=== PATIENT | male | born 1960 | race Hispanic/Latino ===

== ENCOUNTER 2017-07-08 12:09 | Outpatient (CLI) | payer OTHER ==
--- NOTE | 2017-07-08 14:09 | ULT ---
BILATERAL LOWER EXTREMITY VENOUS ULTRASOUND: HISTORY: Bilateral lower extremity edema. COMPARISON: None. TECHNIQUE: Multiplanar nguyen-scale and color Doppler images were obtained in a bilateral lower extremity venous u ltrasound. Spectral analysis of the Doppler waveforms was performed. FINDINGS: The bilateral common femoral veins, profunda femoral veins, superficial femoral veins, and popliteal veins are normal in appearance without visible thrombus. These vessels demonstrate normal compressio n, flow, and augmentation. The posterior tibial veins and greater saphenous veins are also patent. Posterior to the right knee there is a Rojo's cyst, measuring 3.9 cm in greatest dimension. IMPRESSION: 1. No evidence of deep venous thrombosis. 2. Right Rojo's cyst. POS: [facility]
--- NOTE | 2017-07-08 15:36 | ULT ---
BILATERAL LOWER EXTREMITY ARTERIAL DOPPLER ULTRASOUND: Date: 07/08/17 COMPARISON: None. HISTORY: Nonhealing wound on right ankle. TECHNIQUE: Multiplanar Broussard scale sonographic imaging of the arterial structures of bilateral lower extremities obtained with color flow and spectral analysis. FINDINGS: The left common femoral artery is patent and demonstrates a triphasic waveform, as does the left prof unda femoral artery proximally. The proximal left superficial femoral artery is patent and demonstrat es a biphasic waveform. Left popliteal artery, anterior tibial artery, posterior tibial artery, and dorsalis pedis artery are patent on the left with biphasic waveforms noted. The right common femoral artery is patent and demonstrates a biphasic waveform. Right profunda femora l artery is patent with a triphasic waveform. The right SFA proximally is patent with a biphasic wave form. The mid and distal right SFA demonstrate a monophasic waveform on the right and the popliteal artery, as well as the NOLVIA, CHAIN MORTISER OPERATOR, and DPA on the right are monophasic. This suggests an area of hemody namically significant stenosis in the region of the proximal/mid right superficial femoral artery. VESSEL PEAK SYSTOLIC VELOCITY (cm/sec) RIGHT LOWER EXTREMITY: SERVER SYSTEMS ADMINISTRATOR 119 Profunda Femoral Artery 95 SFA Proximal 123 SFA Mid 155 SFA Distal 134 Popliteal Artery 140 NOLVIA 113 CHAIN MORTISER OPERATOR 113 DPA 20 LEFT LOWER EXTREMITY: SERVER SYSTEMS ADMINISTRATOR 141 Profunda Femoral Artery 107 SFA Proximal 112 SFA Mid 127 SFA Distal 104 Popliteal Artery 68 NOLVIA 112 CHAIN MORTISER OPERATOR 70 DPA 49 IMPRESSION: Bilateral lower extremity arterial structures are patent. There is concern for hemodynamically signif icant stenosis in the proximal/mid right SFA as described above. Recommend CT angiogram of the abdome n, pelvis, and bilateral lower extremities using a runoff protocol. POS: [facility]
== END 2017-07-08 12:10 | disposition home or self-care (01) ==
LOC: ULT 12:09
PROVIDERS: ATTEND Nurse Practitioner Family
DX: S81.801S Unspecified open wound, right lower leg, sequela (principal); I87.2 Venous insufficiency (chronic) (peripheral); R60.0 Localized edema; E66.9 Obesity, unspecified; I70.292 Other atherosclerosis of native arteries of extremities, left leg; M71.21 Synovial cyst of popliteal space [Baker], right knee
CPT/HCPCS: 93923; 93970

== ENCOUNTER 2020-03-14 10:29 | Outpatient (CLI) | payer OTHER ==
--- NOTE | 2020-03-14 10:41 | ULT ---
GALLBLADDER ULTRASOUND: HISTORY: Right upper quadrant abdominal pain FINDINGS: The liver demonstrates increased echogenicity without focal mass or intrahepatic biliary ductal dilat ation. No gallstones, gallbladder wall thickening or pericholecystic fluid are seen. The right kidney and visualized portions of the pancreas are normal. The common duct [id number] in diameter. No free fluid is seen in the Day's pouch. IMPRESSION: 1. Fatty liver 2. No evidence of cholelithiasis
== END 2020-03-14 10:30 | disposition home or self-care (01) ==
LOC: BICULT 10:29
PROVIDERS: ATTEND Nurse Practitioner Family
DX: R74.8 Abnormal levels of other serum enzymes (principal); K76.0 Fatty (change of) liver, not elsewhere classified
CPT/HCPCS: 76705

== ENCOUNTER 2023-01-08 07:46 | Outpatient (CLI) | payer BC ==
[2023-01-08] MEDS ORDERED: Iopamidol 370 76% 100 ML VIAL ONE (10:28)
== END 2023-01-08 07:47 | disposition home or self-care (01) ==
LOC: CT 07:46
PROVIDERS: ATTEND Internal Medicine Gastroenterology
DX: C18.9 Malignant neoplasm of colon, unspecified (principal); R91.8 Other nonspecific abnormal finding of lung field; R59.0 Localized enlarged lymph nodes; K63.89 Other specified diseases of intestine
CPT/HCPCS: 71260; 74177; 82565; Q9967

== ENCOUNTER 2023-01-31 09:05 | Outpatient (CLI) | payer BC ==
[2023-01-31 10:29] LABS: #Eosinphils 0.3 10x3/uL (0.0-0.5); #Monocytes 0.4 10x3/uL (0.0-1.1); #Neutrophils 2.9 10x3/uL (1.5-8.4); %Basophils 0.7 % (0.0-2.0); %Eosinophils 4.5 % (0.0-6.0); %Lymphocytes 37.5 % (18.0-47.0); %Monocytes 7.4 % (0.0-10.0); %Neutrophils 49.7 % (40.0-75.0); Hematocrit 40.7 % (38.8-50.0); Hemoglobin 13.3 g/dL (13.5-17.5); Mean Corpuscular HGB CONC 32.7 g/dL (32.0-36.0); Mean Corpuscular Volume 91.9 fl (81.2-95.1); Mean Platelet Volume 10.7 fl (7.4-10.4); Platelet Count 204 10x3/uL (150-450); RBC Distribution Width 15.7 % (11.5-14.5); Red Blood Cell (RBC) Count 4.43 10x6/uL (4.32-5.72); White Blood Cell (WBC) Count 5.8 10x3/uL (3.5-10.5)
[2023-01-31 10:56] LABS: Anion Gap 12 mmol/L (10-20); BUN (Urea Nitrogen) 20 mg/dL (8.4-25.7); Calc. Creatinine Clearance 0 mL/min (70-130); Calcium 9.7 mg/dL (7.8-10.44); Carbon Dioxide 29 mmol/L (23-31); Chloride 102 mmol/L (98-107); Estimated GFR 92; Glucose 138 mg/dL (80-115); Potassium 4.2 mmol/L (3.5-5.1); Sodium 139 mmol/L (136-145)
[2023-01-31 15:21] LABS: Hemoglobin A1c 6.1 % (4.0-6.0)
== END 2023-01-31 09:06 | disposition home or self-care (01) ==
LOC: LABBT 09:05
PROVIDERS: ATTEND Surgery
DX: Z01.818 Encounter for other preprocedural examination (principal); C18.9 Malignant neoplasm of colon, unspecified
CPT/HCPCS: 80048; 83036; 85025; 93005; 93010

== ENCOUNTER 2023-01-31 10:00 | Inpatient (IN) | payer BC ==
[2023-01-31 09:57] VITALS: BMI 37.5
[2023-02-05] MEDS ORDERED: Midazolam HCl 2 mg/2 ml Vial ONE (09:18)
[2023-02-05] MEDS ORDERED: fentaNYL PF 100 MCG/2 ML SYRINGE ONE (09:19)
[2023-02-05] MEDS ORDERED: cefOXitin 2 GM VIAL ONE (09:36)
[2023-02-05] MEDS ORDERED: Sodium Chloride 0.9% 100 ML ONE (09:36)
[2023-02-05] MEDS ORDERED: Glycopyrrolate 0.2 MG/ML 5 ML SYRINGE ONE (09:45)
[2023-02-05] MEDS ORDERED: Dexamethasone 20 MG/5 ML VIAL ONE (09:45)
[2023-02-05] MEDS ORDERED: Ondansetron PF 4 MG/2 ML Vial ONE (09:45)
[2023-02-05] MEDS ORDERED: Rocuronium Bromide 10 MG/ML (10ML VIAL) ONE (09:45)
[2023-02-05] MEDS ORDERED: PROPOFOL 200 MG/20 ML VIAL ONE (09:45)
[2023-02-05] MEDS ORDERED: Lidocaine 1% PF 5 ML VIAL ONE (09:45)
[2023-02-05] MEDS ORDERED: ePHEDrine Sulfate 50 MG/10 ML VIAL ONE (09:45)
[2023-02-05] MEDS ORDERED: EPINEPHrine 1 MG/ML AMP ONE (10:07)
[2023-02-05] MEDS ORDERED: Bupivacaine 0.25% HCL 30 ML VIAL ONE (10:07)
[2023-02-05] MEDS ORDERED: Ondansetron HCl/PF 4 MG/2 ML Vial IVP PRN (10:35)
[2023-02-05] MEDS ORDERED: Promethazine HCl 25 MG/ML VIAL IM PRN ×2 (10:35→12:42)
[2023-02-05] MEDS ORDERED: SUGAMMADEX SODIUM 200 MG/2 ML VIAL ONE (12:02)
[2023-02-05] MEDS ORDERED: fentaNYL 50 mcg/mL 1 mL Vial ONE ×3 (12:32→13:52)
[2023-02-05] MEDS ORDERED: hydrALAZINE 20 MG/ML VIAL SLOW IVP PRN (12:42)
[2023-02-05] MEDS ORDERED: Ondansetron PF 4 MG/2 ML Vial IVP PRN (12:42)
[2023-02-05] MEDS ORDERED: Ipratropium/Albuterol 3 ML NEB NEB PRN (12:42)
[2023-02-05] MEDS: Fentanyl 100 MCG/2 ML VIAL SLOW IVP PRN ×4 (15:13→21:41)
[2023-02-05] MEDS: D5 1/2 NS w/20 mEq KCL 1,000 ML IV SCH (15:14)
[2023-02-05] MEDS: Divalproex Sodium DR 500 MG TAB PO SCH ×2 (15:14→21:41)
[2023-02-05] MEDS ORDERED: FLU VACC QS2023-24(6MOS UP)/PF 60 MCG/0.5 ML SYRINGE IM ONE (16:30)
[2023-02-05] MEDS: cefOXitin 2 GM in Sodium Chloride 0.9% 100 ML IVPB SCH ×2 (17:27→23:59)
[2023-02-05] MEDS: Famotidine/PF 20 mg/2ml Vial SLOW IVP SCH (19:40)
[2023-02-05] MEDS: carBAMazepine XR 200 mg ER.Tablet PO SCH (21:41)
[2023-02-05] MEDS: Famotidine 20 MG TAB PO SCH (21:51)
[2023-02-06] MEDS: D5 1/2 NS w/20 mEq KCL 1,000 ML IV SCH ×4 (01:05→16:08)
[2023-02-06] MEDS: Fentanyl 100 MCG/2 ML VIAL SLOW IVP PRN ×3 (05:10→09:21)
[2023-02-06 06:12] LABS: #Eosinphils 0.1 thou/uL (0.0-0.7); #Monocytes 1.1 thou/uL (0.11-0.59); %Basophils 0.3 % (0.0-1.0); %Eosinophils 0.6 % (0.0-10.0); %Lymphocytes 23.1 % (21.0-51.0); %Monocytes 11.4 % (0.0-10.0); %Neutrophils 64.4 % (42.0-75.0); Hematocrit 34.2 % (42.0-52.0); Hemoglobin 11.3 g/dL (14.0-18.0); Mean Corpuscular Hemoglobin 30.8 pg (27.0-31.0); Mean Corpuscular Volume 93.2 fl (78.0-98.0); Mean Platelet Volume 10.6 fL (7.4-10.4); Platelet Count 179 10x3/uL (130-400); RBC Distribution Width 15.6 % (11.5-14.5); Red Blood Cell (RBC) Count 3.67 mill/uL (4.70-6.10); White Blood Cell (WBC) Count 9.4 10x3/uL (4.8-10.8)
[2023-02-06 07:00] LABS: Anion Gap 14 mmol/L (10-20); BUN (Urea Nitrogen) 17 mg/dL (8.4-25.7); Calc. Creatinine Clearance 131 mL/min (70-130); Calcium 8.5 mg/dL (7.8-10.44); Carbon Dioxide 24 mmol/L (23-31); Chloride 103 mmol/L (98-107); Estimated GFR 88; Glucose 132 mg/dL (80-115); Potassium 3.5 mmol/L (3.5-5.1); Sodium 137 mmol/L (136-145)
[2023-02-06] MEDS: Famotidine 20 MG TAB PO SCH ×2 (09:04→20:02)
[2023-02-06] MEDS: Divalproex Sodium DR 500 MG TAB PO SCH ×3 (09:05→20:03)
[2023-02-06] MEDS: carBAMazepine XR 200 mg ER.Tablet PO SCH ×2 (09:06→20:02)
[2023-02-06] MEDS: Losartan 25 MG TAB PO SCH (09:07)
[2023-02-06] MEDS: Hydrochlorothiazide 25 MG TAB PO SCH (09:07)
[2023-02-06] MEDS: Amlodipine 5 MG TAB PO SCH (09:08)
[2023-02-06] MEDS: Famotidine/PF 20 mg/2ml Vial SLOW IVP SCH ×2 (09:09→23:15)
[2023-02-06] MEDS: HYDROcodone/Acetaminophen 7.5/325 mg Tablet PO PRN ×4 (11:53→23:24)
[2023-02-06] MEDS ORDERED: Acetaminophen 325 MG TAB PO PRN (12:37)
[2023-02-06] MEDS ORDERED: diphenhydrAMINE 50 MG CAP PO PRN (16:34)
[2023-02-06] MEDS ORDERED: Loratadine 10 MG TAB PO PRN (16:34)
[2023-02-07] MEDS: HYDROcodone/Acetaminophen 7.5/325 mg Tablet PO PRN ×2 (05:18→13:50)
[2023-02-07] MEDS: Famotidine 20 MG TAB PO SCH (09:07)
[2023-02-07] MEDS: Hydrochlorothiazide 25 MG TAB PO SCH (09:07)
[2023-02-07] MEDS: Divalproex Sodium DR 500 MG TAB PO SCH ×2 (09:08→13:50)
[2023-02-07] MEDS: Losartan 25 MG TAB PO SCH (09:08)
[2023-02-07] MEDS: Amlodipine 5 MG TAB PO SCH (09:08)
[2023-02-07] MEDS: carBAMazepine XR 200 mg ER.Tablet PO SCH (09:08)
[2023-02-07] MEDS: Famotidine/PF 20 mg/2ml Vial SLOW IVP SCH (09:09)
[2023-02-07 15:34] VITALS: BP 137/76; TEMP 97.6
[2023-02-07] MEDS: D5 1/2 NS w/20 mEq KCL 1,000 ML IV SCH (17:21)
== END 2023-02-07 18:31 | disposition home or self-care (01) | DRG 331 ==
LOC: SURG A 02-05 07:03
PROVIDERS: ADMIT Surgery; ATTEND Surgery
PROC: 0DTF4ZZ Resection of Right Large Intestine, Percutaneous Endoscopic Approach (ICD-10-PCS; principal; 2023-02-05)
DX: C18.3 Malignant neoplasm of hepatic flexure (principal); Z79.899 Other long term (current) drug therapy; E78.5 Hyperlipidemia, unspecified; I73.9 Peripheral vascular disease, unspecified; M19.90 Unspecified osteoarthritis, unspecified site; I10 Essential (primary) hypertension
CPT/HCPCS: 36415; 36416; 80048; 85025; 88309; A4314; J0171; J0694; J1100; J1650; J2250; J2405; J2704; J3010; J3480; J3490; S0020; S0028

== ENCOUNTER 2023-03-01 11:49 | Day surgery (SDC) | payer BC ==
[2023-02-28 11:36] VITALS: BMI 36.4
[2023-03-01 13:40] LABS: #Eosinphils 0.2 thou/uL (0.0-0.7); #Monocytes 0.4 thou/uL (0.11-0.59); #Neutrophils 3.4 thou/uL (1.40-6.50); %Basophils 0.5 % (0.0-1.0); %Lymphocytes 36.5 % (21.0-51.0); %Monocytes 6.3 % (0.0-10.0); %Neutrophils 53.5 % (42.0-75.0); Hematocrit 38.8 % (42.0-52.0); Hemoglobin 12.8 g/dL (14.0-18.0); Mean Corpuscular Volume 93.9 fl (78.0-98.0); Mean Platelet Volume 10.4 fL (7.4-10.4); Platelet Count 222 10x3/uL (130-400); Red Blood Cell (RBC) Count 4.13 mill/uL (4.70-6.10); White Blood Cell (WBC) Count 6.4 10x3/uL (4.8-10.8)
[2023-03-01] MEDS ORDERED: fentaNYL 50 mcg/mL 1 mL Vial ONE (13:56)
[2023-03-01] MEDS ORDERED: EPINEPHrine 1 MG/ML VIAL ONE (13:59)
[2023-03-01] MEDS ORDERED: Bupivacaine 0.25% HCL 30 ML VIAL ONE (14:00)
[2023-03-01] MEDS ORDERED: Lidocaine 2% PF 5 ML VIAL ONE (14:00)
[2023-03-01 14:05] LABS: Anion Gap 15 mmol/L (10-20); BUN (Urea Nitrogen) 13 mg/dL (8.4-25.7); Calc. Creatinine Clearance 140 mL/min (70-130); Carbon Dioxide 26 mmol/L (23-31); Chloride 102 mmol/L (98-107); Estimated GFR 97; Glucose 104 mg/dL (80-115); Sodium 139 mmol/L (136-145)
[2023-03-01] MEDS ORDERED: CEFAZOLIN 2 GM VIAL ONE (14:08)
[2023-03-01] MEDS ORDERED: Sodium Chloride 0.9% 100 ML ONE (14:08)
[2023-03-01] MEDS ORDERED: PROPOFOL 200 MG/20 ML VIAL ONE (14:14)
[2023-03-01] MEDS ORDERED: PROPOFOL 20 ML ONE (14:33)
== END 2023-03-01 15:35 | disposition home or self-care (01) ==
LOC: SDC 11:49
PROVIDERS: ATTEND Surgery
PROC: 0JH60WZ Insertion of Totally Implantable Vascular Access Device into Chest Subcutaneous Tissue and Fascia, Open Approach (ICD-10-PCS; principal; 2023-03-01)
DX: C18.3 Malignant neoplasm of hepatic flexure (principal); I10 Essential (primary) hypertension; E78.5 Hyperlipidemia, unspecified; E66.9 Obesity, unspecified; Z68.42 Body mass index [BMI] 45.0-49.9, adult; Z79.899 Other long term (current) drug therapy; Z88.8 Allergy status to other drugs, medicaments and biological substances; Z90.49 Acquired absence of other specified parts of digestive tract
CPT/HCPCS: 71045; 80048; 85025; C1788; J0171; J1642; J2001; J2704; J3010; J3490; S0020

== ENCOUNTER 2023-04-09 11:40 | Outpatient (CLI) | payer BC | END 2023-04-09 11:41 | disposition home or self-care (01) | LOC: BICRAD 11:40 | PROVIDERS: ATTEND Nurse Practitioner Family | DX: R05.1 Acute cough (principal) | CPT/HCPCS: 71046 ==

== ENCOUNTER 2023-04-30 15:47 | Observation (INO) | payer BC ==
[2023-04-30 17:16] LABS: #Neutrophils 7.1 thou/uL (1.40-6.50); %Basophils 0.4 % (0.0-1.0); %Lymphocytes 4.2 % (21.0-51.0); %Monocytes 11.3 % (0.0-10.0); %Neutrophils 83.9 % (42.0-75.0); Hematocrit 38.8 % (42.0-52.0); Mean Corpuscular HGB CONC 33.5 g/dL (32.0-36.0); Mean Corpuscular Hemoglobin 31.6 pg (27.0-31.0); Mean Corpuscular Volume 94.2 fl (78.0-98.0); Platelet Count 141 10x3/uL (130-400); RBC Distribution Width 14.9 % (11.5-14.5); Red Blood Cell (RBC) Count 4.12 mill/uL (4.70-6.10); White Blood Cell (WBC) Count 8.5 10x3/uL (4.8-10.8)
[2023-04-30 17:28] LABS: Prothrombin Time 13.8 sec (12.0-14.7)
[2023-04-30 17:29] LABS: PTT 26.5 sec (22.9-36.1)
[2023-04-30 17:38] LABS: ALT (SGPT) 26 U/L (8-55); AST (SGOT) 27 U/L (5-34); Albumin 4.2 g/dL (3.4-4.8); Alkaline Phosphatase 88 U/L (40-110); Anion Gap 13 mmol/L (10-20); BUN (Urea Nitrogen) 18 mg/dL (8.4-25.7); Bilirubin, Total 0.6 mg/dL (0.2-1.2); Calc. Creatinine Clearance 0 mL/min (70-130); Calcium 9.6 mg/dL (7.8-10.44); Carbon Dioxide 28 mmol/L (23-31); Chloride 101 mmol/L (98-107); Estimated GFR 72; Globulin 4.1 g/dL (2.4-3.5); Glucose 140 mg/dL (80-115); Potassium 3.8 mmol/L (3.5-5.1); Protein, Total 8.3 g/dL (5.8-8.1); Sodium 138 mmol/L (136-145)
[2023-04-30] MEDS ORDERED: Cefepime 2 GM VIAL ONE (18:18)
[2023-04-30] MEDS ORDERED: Sodium Chloride 0.9% 100 ML ONE (18:18)
[2023-04-30] MEDS ORDERED: Acetaminophen 500 MG TAB ONE (18:27)
[2023-04-30 18:32] LABS: Bacteria/HPF None Seen HPF (None Seen); Bilirubin Negative (Negative); Blood, Urine Negative (Negative); CAUTI Indications for Culture Immunosuppressed; Clarity Clear (Clear); Glucose, Urine (Dipstick) Normal (Negative); Ketone, Urine Negative (Negative); Leukocyte Negative Leu/uL (Negative); Nitrite Negative (Negative); Protein, Urine (Dipstick) 50 mg/dL (Neg-Trace); RBC/HPF None Seen HPF (0-3); Specific Gravity, Urine 1.031 (1.002-1.036); Squamous Epithelial 0-3 HPF (0-3); Urobilinogen Normal mg/dL (Less than 2); WBC/HPF 0-3 HPF (0-3); pH, Urine 5.5 (5.0-9.0)
[2023-04-30 18:34] LABS: Urine Culture Reflex Yes Yes
[2023-04-30 18:40] LABS: Amphetamine Not Detected (NotDetected); Barbiturates Screen Not Detected (NotDetected); Benzodiazepine Screen Not Detected (NotDetected); Cocaine Metabolite Screen Not Detected (NotDetected); Methadone Not Detected (NotDetected); Methamphetamine Not Detected (NotDetected); Opiate Screen Not Detected (NotDetected); Oxycodone Screen Not Detected (NotDetected); Phencyclidine (PCP) Not Detected (NotDetected); THC/Cannabinoid Screen Not Detected (NotDetected); Tricyclic Screen Not Detected (NotDetected)
[2023-04-30] MEDS ORDERED: Ondansetron ODT 4 MG TAB PO PRN (19:03)
[2023-04-30] MEDS ORDERED: Acetaminophen 325 MG TAB PO PRN (19:03)
[2023-04-30] MEDS ORDERED: Calcium Carbonate 500 MG ChewTAB PO PRN (19:03)
[2023-04-30 19:08] LABS: Troponin I 0.047 ng/mL (< 0.028)
[2023-04-30 19:13] LABS: Acetaminophen Less than 10 mcg/mL (10.0-30.0); Alcohol Less than 10.0 mg/dL (Less than 10); Salicylate Less than 8.0 mg/dL (15.0-30.0)
[2023-04-30] MEDS ORDERED: Vancomycin (BATCH) 2 GM in Premix 1 BAG IVPB SCH (19:30)
[2023-04-30 20:03] LABS: SARS-CoV-2 NAA Rapid Test Not Detected (NotDetected)
[2023-05-01 01:31] VITALS: BMI 34.8
[2023-05-01] MEDS: Famotidine 20 MG TAB PO SCH ×2 (02:17→08:27)
[2023-05-01 05:52] LABS: #Eosinphils 0.1 thou/uL (0.0-0.7); #Monocytes 0.6 thou/uL (0.11-0.59); #Neutrophils 3.5 thou/uL (1.40-6.50); %Basophils 0.6 % (0.0-1.0); %Eosinophils 2.7 % (0.0-10.0); %Lymphocytes 11.9 % (21.0-51.0); %Monocytes 12.3 % (0.0-10.0); %Neutrophils 72.5 % (42.0-75.0); Hematocrit 35.4 % (42.0-52.0); Hemoglobin 11.6 g/dL (14.0-18.0); Mean Corpuscular HGB CONC 32.8 g/dL (32.0-36.0); Mean Corpuscular Hemoglobin 31.3 pg (27.0-31.0); Mean Corpuscular Volume 95.4 fl (78.0-98.0); Mean Platelet Volume 10.7 fL (7.4-10.4); Platelet Count 107 10x3/uL (130-400); RBC Distribution Width 14.9 % (11.5-14.5); Red Blood Cell (RBC) Count 3.71 mill/uL (4.70-6.10); White Blood Cell (WBC) Count 4.8 10x3/uL (4.8-10.8)
[2023-05-01 06:19] LABS: Anion Gap 10 mmol/L (10-20); BUN (Urea Nitrogen) 15 mg/dL (8.4-25.7); Calc. Creatinine Clearance 136 mL/min (70-130); Calcium 8.5 mg/dL (7.8-10.44); Carbon Dioxide 28 mmol/L (23-31); Chloride 104 mmol/L (98-107); Estimated GFR 96; Glucose 136 mg/dL (80-115); Potassium 3.6 mmol/L (3.5-5.1); Sodium 138 mmol/L (136-145)
[2023-05-01] MEDS ORDERED: VANCO/ABX IVPB PRN (07:44)
[2023-05-01] MEDS ORDERED: Vancomycin (BATCH) 1.25 GM in Premix 1 BAG IVPB SCH (09:00)
[2023-05-01] MEDS ORDERED: Vancomycin (BATCH) 1.5 GM in Premix 1 BAG IVPB SCH (09:00)
[2023-05-01] MEDS ORDERED: Cefepime 2 GM in Sodium Chloride 0.9% 100 ML IVPB SCH (09:00)
[2023-05-01] MEDS ORDERED: Vancomycin 1 GM in Premix 1 BAG IVPB SCH (09:00)
[2023-05-01 11:59] VITALS: BP 153/87; TEMP 98.2
[2023-05-01 15:21] LABS: Carbamazepine-Tegretol 6.6 ug/mL (4.0-12.0)
[2023-05-01] MEDS ORDERED: Non-Formulary Item 1 EACH (Prochlorperazine Maleate [Compazine] 10 MG Tab) PO PRN (15:28)
[2023-05-01] MEDS ORDERED: Ondansetron ODT 4 MG TAB PO PRN (15:28)
[2023-05-01] MEDS ORDERED: Prochlorperazine Maleate 5 MG TAB PO PRN (16:15)
[2023-05-01] MEDS ORDERED: carBAMazepine XR 200 mg ER.Tablet PO SCH (21:00)
[2023-05-01] MEDS ORDERED: Divalproex Sodium DR 500 MG TAB PO SCH (21:00)
[2023-05-02] MEDS ORDERED: Losartan 25 MG TAB PO SCH (09:00)
[2023-05-02] MEDS ORDERED: Amlodipine 5 MG TAB PO SCH (09:00)
[2023-05-02] MEDS ORDERED: Hydrochlorothiazide 25 MG TAB PO SCH (09:00)
[2023-05-04] MEDS ORDERED: FLU VACC QS2023-24(6MOS UP)/PF 60 MCG/0.5 ML SYRINGE IM ONE (09:00)
== END 2023-05-01 16:05 | disposition home or self-care (01) ==
LOC: ERS 15:47 → MSONC 19:25
PROVIDERS: ADMIT Student in an Organized Health Care Education/Training Program; ATTEND Hospitalist
DX: G40.919 Epilepsy, unspecified, intractable, without status epilepticus (principal); I10 Essential (primary) hypertension; E66.9 Obesity, unspecified; E78.5 Hyperlipidemia, unspecified; F10.90 Alcohol use, unspecified, uncomplicated; R50.9 Fever, unspecified; Z85.038 Personal history of other malignant neoplasm of large intestine; Z79.899 Other long term (current) drug therapy; Z68.34 Body mass index [BMI] 34.0-34.9, adult; Z90.89 Acquired absence of other organs; Z98.890 Other specified postprocedural states
CPT/HCPCS: 36415; 70450; 71046; 72125; 76536; 80048; 80053; 80156; 80164; 80306; 80307; 81001; 82140; 83605; 84146; 84484; 85025; 85610; 85730; 87040; 87086; 93005; 96366; G0378; J0692; J3370; J3490